=== PATIENT | male | born 1960 | race African-American/Black ===

== ENCOUNTER 2017-04-14 18:19 | Emergency (ER) | payer BC ==
[2017-04-14] MEDS ORDERED: Acetaminophen 500 MG TAB ONE (18:27)
[2017-04-14] MEDS ORDERED: Ibuprofen 200 MG TAB ONE (18:27)
== END 2017-04-14 19:05 | disposition home or self-care (01) ==
LOC: ERS 18:19
DX: J10.1 Influenza due to other identified influenza virus with other respiratory manifestations (principal); I10 Essential (primary) hypertension; E78.00 Pure hypercholesterolemia, unspecified
CPT/HCPCS: 87804

== ENCOUNTER 2019-02-26 13:50 | Outpatient (CLI) | payer BC ==
--- NOTE | 2019-02-26 15:16 | ULT ---
BILATERAL RENAL ULTRASOUND: HISTORY: Hypertension and night sweats. FINDINGS: The right kidney measures 9.2 cm in length and the left kidney measures 11.4 cm in length. No hydron ephrosis is seen on either side. There is a 2.6 cm cyst in the right kidney and a 1.5 cm cyst in the left kidney. Bilateral ureteral jets are seen in the urinary bladder which has a volume of 130 cc o n the prevoid images and is empty on the postvoid images. There is a focal mass-like prominence in the left kidney which may represent a tumor/neoplasm or a pr ominent column of Monty. This measures about 2 cm. IMPRESSION: 1. Bilateral renal cysts. 2. Neoplasm versus prominent column of Monty in the left kidney. RECOMMENDATION: CT scan with and without IV contrast using the renal mass protocol is recommended. POS: OFF
== END 2019-02-26 13:51 | disposition home or self-care (01) ==
LOC: BICULT 13:50
PROVIDERS: ATTEND Family Medicine
DX: R61 Generalized hyperhidrosis (principal); N28.1 Cyst of kidney, acquired
CPT/HCPCS: 76770

== ENCOUNTER 2019-03-19 09:09 | Outpatient (CLI) | payer BC ==
--- NOTE | 2019-03-19 10:14 | CT ---
EXAM: CT Abdomen W WO Con PROVIDED CLINICAL HISTORY: Abnormal ultrasound exam COMPARISON: Renal sonogram ON 02/26/2019 FINDINGS: A 2.9 cm fluid attenuation exophytic cystic structure seen in the inferior pole right kidney compatib le with a cyst. A subcentimeter too small to characterize hypodense lesion is seen in the midportion of the right kidney. A 1.5 cm hypodense cystic structure is seen on the portal venous phase of imaging at the junction of the midportion and superior pole left kidney which fills with contrast on the delayed phase of imaging most compatible with a calyceal diverticulum. There is no evidence of an enhancing renal mass . Finding on the prior ultrasound examination is likely related to a prominent column of Omnty. There is evidence of a duplicated left renal collecting system. Imaging of the pelvis was not obtaine d to evaluate for complete duplication versus partial duplication of the left renal collecting system. There is no hydronephrosis. The lung bases, liver, spleen, pancreas, and bilateral adrenal glands demonstrate a normal CT appeara nce. Minimal vascular calcifications are seen in the abdominal aorta. Small fat-containing umbilical hernia is present. There is colonic diverticulosis. No suspicious lytic or sclerotic osseous lesions are identified. IMPRESSION: 1. No enhancing renal mass is seen involving the kidneys bilaterally. 2. 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 3. 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 4. Right renal cyst with subcentimeter too small to characterize hypodense lesion right kidney. 5. Colonic diverticulosis.
[2019-03-19] MEDS ORDERED: ISOVUE-370 76%-LOCM 1 ML ONE (13:19)
== END 2019-03-19 09:10 | disposition home or self-care (01) ==
LOC: BICCT 09:09
PROVIDERS: ATTEND Family Medicine
DX: N18.3 Chronic kidney disease, stage 3 (moderate) (principal); K57.30 Diverticulosis of large intestine without perforation or abscess without bleeding; N28.1 Cyst of kidney, acquired
CPT/HCPCS: 74170; Q9966